=== PATIENT | female | born 1985 | race Caucasian/White ===

== ENCOUNTER 2023-10-03 13:41 | Emergency (ER) | payer OTHER, SELFPAY ==
[2023-10-03 13:49] VITALS: BP 139/82
[2023-10-03 14:26] VITALS: BMI 23.7
--- NOTE | 2023-10-03 15:00 | ED.GENMED ---
History of Present Illness
<Anne Lopes PA-C - Last Filed: 10/03/23 17:57>
General
Chief Complaint: Headache
Source: patient
Exam Limitations: none
Time Seen by Provider: 10/03/23 14:53
Nursing documentation reviewed up to this point in time: agreed with
Travel History
Have you had any contact with someone who has COVID-19?: No
Do you have any symptoms of coronavirus? Fever > 100 degrees, chills, cough, shortness of breath, sore throat, loss of taste or smell, muscle aches, or headache?: No
History of Present Illness
History of Present Illness:
This is a 38-year-old female with no past medical history presenting emergency department today with right-sided headache and right ear pain for the past 5 days. She states that the pain came on randomly and she thought it was a normal headache but
then she started to have swelling feeling in the back of her head with associated itchiness of her scalp around the occipital region. She also noticed a lump on the right side of her neck today and states she also feels a lump in her occipital
region. She called her family doctor who could not get her in for a week to he advised her to report to the emergency department for sooner workup. Patient states that her headache does improve with ibuprofen. 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 The headache is mild but becomes sharp at times, patient is not acutely concerned with a headache, but rather constellation of symptoms with it. Patient has no
changes to her vision, no photophobia, no vomiting, no nausea. No double vision.
Past History
<Anne Lopes PA-C - Last Filed: 10/03/23 17:57>
Past History
ED Past Medical History: None
ED Past Surgical History: None
Social History
Tobacco: Non-smoker
Personal:
Living: with family
Review of Systems
<Anne Lopes PA-C - Last Filed: 10/03/23 17:57>
Review of Systems
All Other Systems: ROS reviewed and negative except as documented in HPI and ROS
Phy Exam
<Anne Lopes PA-C - Last Filed: 10/03/23 17:57>
Physical Exam
Physical Exam:
General: Patient is well-appearing no acute distress
Skin: There is scattered macular papular lesions that are nonpainful and nonpruritic on the right and left lateral neck.
HEENT: There is a scattered petechial rash at the occipital region of the patient's scalp. There is also one posterior cervical lymphadenopathy noted on the right side. TMs are clear bilaterally with no erythema or bulging.
Cardiac: Regular rate and rhythm, no murmurs.
Pulm: Normal respiratory effort, no adventitious lung sounds
Neuro: Cranial nerves II through XII intact, no involuntary movements. [id number] testing intact, [id number] testing intact.
Course
<Anne Lopes PA-C - Last Filed: 10/03/23 17:57>
Vital Signs
Initial and Last Documented VS:
Initial Vital Signs
Temp Pulse Resp BP Pulse Ox
98.0 F 82 16 139/82 98
10/03/23 13:49 10/03/23 13:49 10/03/23 13:49 10/03/23 13:49 10/03/23 13:49
Last Documented Vital Signs
Temp Pulse Resp BP Pulse Ox
98.0 F 70 16 110/71 96
10/03/23 13:49 10/03/23 17:43 10/03/23 17:43 10/03/23 17:43 10/03/23 17:43
<Denise Carter MD - Last Filed: 10/03/23 17:10>
Vital Signs
Initial and Last Documented VS:
Initial Vital Signs
Temp Pulse Resp BP Pulse Ox
98.0 F 82 16 139/82 98
10/03/23 13:49 10/03/23 13:49 10/03/23 13:49 10/03/23 13:49 10/03/23 13:49
Last Documented Vital Signs
Temp Pulse Resp BP Pulse Ox
98.0 F 70 16 110/71 96
10/03/23 13:49 10/03/23 17:43 10/03/23 17:43 10/03/23 17:43 10/03/23 17:43
<Anne Lopes PA-C - Last Filed: 10/03/23 17:57>
MDM/Problems Addressed
Differential Diagnosis Includes:
differentials include cellulitis, impetigo, eczema, contact dermatitis, psorasis
headache--differentials include tension headache, migraine headache, cluster headache
MDM/Problems Addressed:
rash
headache
ear pain
Chronic conditions affecting care:
none
Acute Exacerbation and/or Progression of Chronic Illness:
none
<Anne Lopes PA-C - Last Filed: 10/03/23 17:57>
*Pulse Oximetry
Patient hypoxic: no
*Critical Care Note
Total Time (30-74mins, 75-104mins- exclusive of procedures): Not Applicable
Data Reviewed
Review of Other/Old Records Reveals: Records (reviewed previous records, most recent ER visit was in 2013 for acute pharyngitis )
Prescriptions/Medications Considered But Not Given:
n/a
Further Testing Considered But Not Given:
considered ultrasound of neck mass, however exam consistent with lymphadenopathy
<Anne Lopes PA-C - Last Filed: 10/03/23 17:57>
Patient Management
Escalation/DeEscalation of care consider admission/obs:
This is a 38 y/o female with a PMH of HTN, HLP presenting to the ER today with a headache, right ear pain, and scalp rash. She also complains of a neck mass. On exam, she has no obvious acute otitis media or acute otitis externa, she does have an
area of posterior cervical lymphadenopathy. Lymph node is mobile and nontender. Her neurological exam is unremarkable. I suspect she may have early cellulitis on the scalp with associated reactive lymphadenopathy. Will treat with cephalexin, and
have her follow-up with her primary care provider at the end this week. We stressed the importance of follow-up in this patient
ED Attending Note
<Anne Lopes PA-C - Last Filed: 10/03/23 17:57>
-
Portions of this chart may have been created with voice recognition software.� Occasional wrong word or��sound alike� substitutions may have occurred due to the inherent limitations of voice recognition software.
<Denise Carter MD - Last Filed: 10/03/23 17:10>
ED Attending Note
Patient seen and examined by attending physician: Yes
I performed the substantive portion of visit, reviewed & personally made and approve the management plan that is documented in note by myself or NATALY.: Yes
ED Attending Note:
38-year-old female who says she developed discomfort post R neck area (where hairline meets neck), not sudden onset, not worst of life, but persistent, assoc with 'sharp' R inner ear pain since sat (now improved) lasting seconds at a time. No
f/c/change in viision or speech or balance/n/v/numb/tingling/cp/sob/recent trauma. She felt a lump in R post neck. On exam, pt extremely well appearing, TM and canal nl bilate, no facial/neck/head swelling appreciated. There is a small mobile ln
noted post occiput area, nontender. At scalp, small area of redness/ttp, no fluctuance/crepitus/zoster rash, etc.
Suspect sxs related to early cellulitis post scalp area with reactive ln. Oral abx, recheck with pcp later this week.
Discharge Plan
Departure
Patient Disposition: Home (Routine Discharge)
Date of Disposition: 10/03/23
Time of Disposition: 17:11
Patient with high blood pressure during this ER visit?: Yes
Condition: Good
Discharge Problem:
Skin infection, Headache, Lymphadenopathy
Instructions: Lymphadenitis, Cellulitis (Skin Infection), Adult (DC), Headache, Adult (DC)
Prescriptions:
New
cephalexin 500 mg capsule
500 mg PO Q6H 7 Days Qty: 28 0RF
No Action
cefdinir [Omnicef] 300 MG capsule
300 mg PO BID Qty: 14 0RF
Referrals:
Norman Alcocer DO [Family Provider] -
Activity Restrictions/Additional Instructions:
We have sent an antibiotic called cephalexin to your pharmacy. Please take 1 tablet every 6 hours for 7 days.
It is important that you follow-up with your primary care provider at the end of this week to ensure the resolution of your symptoms. Please call for an appointment.
Please return to emergency department should you have worsening of your symptoms.
Interventions
Interventions:
*Risk Screen - Suicide Last Done: 10/03/23 14:26
*General Assessment Last Done: 10/03/23 14:26
*Neglect/Abuse Screening Last Done: 10/03/23 14:26
ED- Fall Risk Assessment Last Done: 10/03/23 15:30
*ED COVID-19 Vaccine History Last Done: 10/03/23 13:49
*Nursing Disposition Last Done: 10/03/23 17:43
ED- Neurological Assessment Last Done: 10/03/23 14:26
Discharge Date and Time
Discharge Date/Time: 10/03/23 17:38
[2023-10-03 17:35] VITALS: BP 110/71
--- NOTE | 2023-10-03 17:42 | EDRN ---
Reviewed discharge instructions with patient. Verbalized understanding. Ambulated with steady gait to the lobby.
[2023-10-03 17:43] VITALS: BP 110/71
== END 2023-10-03 17:38 | disposition home or self-care (01) ==
LOC: EMR 13:41
PROVIDERS: EMERGENCY PHYSICIAN Emergency Medicine; FAMILY PHYSICIAN Family Medicine
DX: L08.9 Local infection of the skin and subcutaneous tissue, unspecified (principal); R51.9 Headache, unspecified; R59.0 Localized enlarged lymph nodes; R03.0 Elevated blood-pressure reading, without diagnosis of hypertension
CPT/HCPCS: 99282